=== PATIENT | male | born 1965 | race Caucasian/White ===

== ENCOUNTER 2016-04-21 12:50 | Day surgery (SDC) | payer OTHER ==
--- NOTE | 2016-04-18 14:53 | PCM.ANEPRE ---
Anesthesia Pre-Op Review Reason for Review: cardio hx Anesthesia Recommendations: See Anesthesia Orders (lap amanda orders entered) Additional Comments Discussed case with Dr. Kirkpatrick and recommended delaying case until BP controlled and documented and cardiology consult completed. He wishes to proceed. Patient has been started on lisinopril and patient reports his BP is "better". Kaya's office also results of echo from 2011 and will forward to preop. Agreed to proceed with evaluation by anesthesiologist on DOS, but warned that at risk for cancellation if BP still elevated and/or any other concerns. Chart Reviewed by: Aleksey Kim MD Apr 18, 2016 14:53
[~2016-04-21] VITALS: Ht 182.9 cm; Wt 163.3 kg
[~2016-04-21 12:50] MED LIST: IBUP200C PO; Lactated Ringer's 1,000 ML IV ONE; Levofloxacin 500 mg/100 mL D5W IV ONE; lisinopril
[2016-04-21] MEDS ORDERED: Glycopyrrolate 0.2 mg/mL 5 mL Inj ONE (12:51)
[2016-04-21] MEDS ORDERED: fentaNYL-PF 50 mCg/mL 2 mL Inj ONE (12:51)
[2016-04-21] MEDS ORDERED: Dexamethasone 4 mg/mL Inj ONE (12:51)
[2016-04-21] MEDS ORDERED: Neostigmine 1 mg/mL 5 mL Inj ONE (12:51)
[2016-04-21] MEDS ORDERED: Rocuronium 10 mg/mL 5 mL Inj ONE (12:51)
[2016-04-21] MEDS ORDERED: Propofol 10,000 mCg/mL 20 mL Inj ONE (12:51)
[2016-04-21] MEDS ORDERED: Ondansetron 2 mg/mL 2 mL Inj ONE (12:51)
[2016-04-21] MEDS ORDERED: MetoCLOpramide 5 mg/mL 2 mL Inj ONE (12:51)
[2016-04-21] MEDS ORDERED: levoFLOXacin 500 mg/100 mL D5W Premix IV ONE (13:08)
[2016-04-21] MEDS ORDERED: Lactated Ringer's 1,000 ML IV ONE ×2 (13:20→17:49)
[2016-04-21 13:34] VITALS: BP 136/75; PULSE 63; RESP 18; O2SAT 96
[2016-04-21] MEDS ORDERED: LISI10TA PO (13:34)
[2016-04-21] MEDS ORDERED: POLY17PO6 PO (14:17)
[2016-04-21] MEDS ORDERED: OXYC5TAB72 PO (14:17)
[2016-04-21] MEDS ORDERED: Lactated Ringer's 500 ML IV PRN (14:32)
[2016-04-21] MEDS ORDERED: Lactated Ringer's 1,000 ML IV SCH (14:32)
--- NOTE | 2016-04-21 14:34 | PCM.HPANE ---
Patient Data Surgeon Admitting Provider: Attending Provider:Christine Kirkpatrick MD Primary Care Physician:Laz Banerjee MD Other Provider:Lynn Mesaingham Anesthesia Reason for Visit Calculus Of Gallbladder Ht/WT & BMI Height (Feet): 6 Height (Inches): 0 Weight (Kilograms): 163.29 Body Mass Index 48.00 Allergies Uncoded Allergies: ENVIRONMENTAL, SEASONAL (Allergy, Unknown, 04/18/16) Past Anesthesia History Anesthesia History: Denies:: Anesthesia Reactions, Fam Anesthesia Reaction Diabetes History Hx Diabetes?: No MRSA MRSA: No Medications Hypertension Medication: Yes Home Meds Incl Beta Jessica: No Active Scripts Polyethylene Glycol 3350 (Miralax)17 Gm Powd.pack17 Gm PO DAILY #20 Prov:Christine Kirkpatrick MD 04/21/16 oxyCODONE 5 Mg Tablet5 Mg PO Q4H PRN For Moderate Pain #30 TABLET Prov:Christine Kirkpatrick MD 04/21/16 Reported Medications Lisinopril 10 Mg Vezqvt96 Mg PO DAILY 30 Days Ref 0 04/21/16 Ibuprofen 200 Mg [id number] Mg PO QID PRN For Pain Ref 0 04/18/16 Discontinued Reported Medications [lisinopril] No Conflict CheckUnknown Dose DAILY 04/18/16 History History of ENT Problems?: Yes HEENT History: Positive for:: Sinus Problem (hx septoplasty, chronic allergy sx) Denies:: Cataracts Glaucoma Hearing Problem Hx of Heart Problems?: Yes Cardiovascular History: Positive for:: Cardiac Surgery (alcohol septal ablation) Hypertension (not on current meds - BP elevated) Denies:: AICD Chest Pain Edema Heart Murmur Irregular Heartbeat Pacemaker Peripheral Vascular Rheumatic Fever Thrombophlebitis Valvular Heart Disease Hx of Respiratory Problem?: Yes Respiratory History: Positive for:: Asthma Denies:: COPD Emphysema Oxygen Administration Pneumonia Pulmonary Embolism Tuberculosis Use of C-PAP Machine Use of Inhalers / NEBS Hx Neurologic Problems?: No Neurological History: Denies:: CVA Headaches Multiple Sclerosis Parkinson's Disease Seizures TIA Hx of GI Problems?: Yes Gastrointestinal History: Positive for:: Gall Bladder Disease (current admission problem) Denies:: Cirrhosis Diverticulitis Gastroesphageal Reflux Gastrointestinal Bleeding Heartburn Hepatitis Hiatal Hernia Liver Disease Rectal Bleeding Hx of Problems?: No Genitourinary History: Denies:: Kidney Stones Urinary Tract Infection Male Hx: Denies:: Prostate Problems Scrotal Mass Testicular Surgery Skin History: Denies:: History Skin Disorders? Pressure Ulcers Hx Musculoskeletal Problems?: Yes Musculoskeletal History: Positive for:: Musculoskeletal Trauma (past hx of left shoulder repair) Denies:: Osteoarthritis Hx Surgeries?: Yes (bimaxillary jaw advancement, left shoulder, septoplasty) Hx Any Other Health Problems?: Yes Other History: Denies:: Cancer Thyroid Disease History Blood Transfusions: Positive for:: Accept Blood Products? Denies:: Blood Transfusions Hx Diabetes: No Stop/Bang Treated for Sleep Apnea?: No Do You Have a CPAP Machine?: No B- Body Mass Index > 35 kg/m2: Yes A- Age over 50: No N- Neck Large Circumference: Yes G- Gender Male: Yes JACKLYN Risk Assessment: High Risk, =/>3 Yes Risk Assessment Category Category 1A: Patient has history of documented sleep apnea, and HAS NOT received any narcotic, sedative or anesthesia administration during this stay. Category 1B: Patient has history of documented sleep apnea, and HAS received any narcotic , sedative or anesthesia administration during this stay Category 2: Patient has SUSPECTED Obstructive Sleep Apnea, and HAS received any narcotic , sedative or anesthesia administration during this stay. Category 3: Patient has SUSPECTED Obstructive Sleep Apnea and HAS NOT received narcotic, sedative or anesthesia administration during this stay. Category 4: Outpatient in Procedural Areas with known sleep apnea or who screen positive for High Risk via the STOP/BANG questionnaire. Exam Exam Vital Signs Vital Signs Date Time Temp Pulse Resp B/P Pulse Ox O2 Delivery O2 Flow Rate FiO2 04/21/16 13:34 36.1 63 18 136/75 96 Room Air General Appearance: Oriented X3 HEENT/AIRWAY: MP 2 Lungs: Normal Air Movement Heart: Regular Rate/Rhythm Meds/Labs/Diagnostics Admission Meds Current Medications Lactated Ringer's (Lr) 1,000 ml @ 120 mls/hr Q8H20M ONCE IV Last administered on 04/21/16 13:31; Start 04/21/16 at 05:00; Stop 04/21/16 at 13:19; Status DC Gabapentin (Neurontin) 600 mg PREOP ONCE PO Last administered on 04/21/16 13: 32; Start 04/21/16 at 06:00; Stop 04/21/16 at 06:01; Status DC Celecoxib (CeleBREX) 200 mg PREOP ONCE PO Last administered on 04/21/16t 13:31 ; Start 04/21/16 at 06:00; Stop 04/21/16 at 06:01; Status DC Plan Impression Patient chart reviewed, patient interviewed and anesthestic plan with risks, benefits, and alternatives discussed, and informed consent obtained. NPO Status: 04/20/16 2200 ASA Physical Status: ASA3 Severe Disease Anesthetic Plan: GA Bene/Risks/Altern/Consents: Yes HP Complete Prior to Induction: Yes Roger Clinton MD Apr 21, 2016 14:34
[2016-04-21] MEDS ORDERED: fentaNYL-PF 50 mCg/mL 2 mL Inj IVPUSH PRN (14:35)
[2016-04-21] MEDS ORDERED: Ondansetron 2 mg/mL 2 mL Inj IVPUSH PRN (14:35)
[2016-04-21] MEDS ORDERED: MetoCLOpramide 5 mg/mL 2 mL Inj IVPUSH PRN (14:35)
[2016-04-21] MEDS ORDERED: EPHEDrine Sulfate 50 mg/mL Inj IVPUSH PRN (14:35)
[2016-04-21] MEDS ORDERED: Dexamethasone 4 mg/mL Inj IVPUSH PRN (14:35)
[2016-04-21] MEDS ORDERED: Phenylephrine 10,000 mCg/mL Inj IVPUSH PRN (14:35)
[2016-04-21] MEDS ORDERED: Bupivacaine-MPF 0.5% 30 mL Inj INFILTRATE ONE (15:15)
--- NOTE | 2016-04-21 17:03 | DRSVH ---
PROCEDURE: X-RAY OPERATIVE CHOLANGIOGRAM ([id number]) INDICATIONS: 50 year-old male undergoing laparoscopic cholecystectomy COMPARISON: [facility], , ABDOMEN COMPLETE, 03/27/2016, 8:00. FINDINGS: Biliary ducts: The surgeon injected contrast into the biliary ducts after cannulation of the cystic duct stump. Intra-- and extrahepatic bile ducts are nonopacified. Duodenum: Non-opacified with contrast. IMPRESSION: Nondiagnostic intraoperative cholangiogram, presumably from incomplete cannulation of the cystic duct stump. Dictated by: Ismael Galindo M.D. on 04/21/2016 at 17:00 Approved by: Ismael Galindo M.D. on 04/21/2016 at 17:02
[2016-04-21 17:20] VITALS: BP 110/55; PULSE 74; RESP 15; O2SAT 93
[2016-04-21 17:26] VITALS: BP 111/59; PULSE 82; RESP 18; O2SAT 93
[2016-04-21 17:38] VITALS: BP 113/63; PULSE 68; RESP 17; O2SAT 93
[2016-04-21] MEDS: HYDROmorphone 1 mg/mL Inj IVPUSH PRN ×2 (17:45→17:50)
[2016-04-21 17:54] VITALS: BP 124/61; PULSE 79; RESP 15; O2SAT 94
[2016-04-21 19:05] VITALS: BP 135/81; PULSE 78; RESP 16; O2SAT 94
--- NOTE | 2016-04-21 19:30 | DRSVH ---
PROCEDURE: MR ABDOMEN MRCP INDICATIONS: Dilated bile duct, Cholangiogram not feasible TECHNIQUE: Coronal HASTE through the abdomen, axial 2-D FLASH in- and [id number], and breath-hold T2 FSE with fat saturation through the biliary system and pancreas. Oblique coronal and axial thin-slice HASTE, radial thick-slab HASTE centered on the extrahepatic bile ducts. Intravenous secretin: Not requested. COMPARISON: [facility], US, ABDOMEN COMPLETE, 03/27/2016, 8:00. [facility], CR, XR CHOLANGIOGRAM OPERATIVE, 04/21/2016, 17:16. FINDINGS: Image quality: Excellent. Pancreas and biliary system: Intra- and extra-hepatic biliary ducts are non dilated. Pancreas is no rmal in morphology, without adjacent soft tissue edema. Pancreatic duct is normal in caliber, withou t developmental anomalies. Gallbladder has been surgically resected. Other solid organs: Liver and spleen are normal in size. No adrenal nodules. Both kidneys are norm al in size, without hydronephrosis. Nodes and vessels: No retroperitoneal or mesenteric adenopathy by size criteria. Aorta and inferior vena cava are normal in size. Bowel and peritoneum: Unenhanced bowel loops are normal in caliber. No free fluid. Lung bases: No basal pleural effusions. Heart size is normal. Bones and soft tissues: No ventral hernias. Bone marrow is of normal overall signal. IMPRESSION: There is a normal caliber common duct, no sign of retained stone within the biliary syste m. No free fluid is seen in the gallbladder fossa or adjacent, and therefore no suspicion for bile l eak. Excellent postoperative appearance. Dictated by: Kyle Anthony M.D. on 04/21/2016 at 19:26 Approved by: Kyle Anthony M.D. on 04/21/2016 at 19:29
--- NOTE | 2016-04-21 21:13 | OP ---
[address] [address] OPERATIVE REPORT PATIENT: JOVANNY JIMENEZ : 1965 MR#: [id number] ADMIT: 04/21/2016 JOB ID: [id number] DATE OF SURGERY: 04/21/2016 PREOPERATIVE DIAGNOSIS(ES): Cholelithiasis. POSTOPERATIVE DIAGNOSIS(ES): Cholelithiasis. PROCEDURE PERFORMED: Laparoscopic cholecystectomy with attempted intraoperative cholangiogram. SURGEON: Christine Kirkpatrick MD. FULL STACK JAVA DEVELOPER: Zeyad De La Cruz PA-C INDICATIONS: The patient is a 50-year-old gentleman who was told by his primary care physician in 2009 that he could have gallstones causing his episodic right-sided abdominal pain. He does not believe he had further investigations at that time. He did occasionally have pain which he did not pay much attention to. He had a severe attack of right sided abdominal pain with nausea a couple of weeks prior to seeing me on April 03, 2016. It lasted almost a week and he went to the emergency department at [facility] after coming back home. He was diagnosed with cholelithiasis prompting referral to Surgery. Ultrasound performed at that time showed gallstones with no gallbladder wall thickening with extrahepatic bile duct measuring 11.4 mm. He had normal liver function studies and after discussing the risks, benefits, and alternatives, he is here today for laparoscopic cholecystectomy with cholangiogram. PROCEDURE DETAILS: He was placed in supine position and underwent smooth induction of general anesthesia. Abdomen was prepped and draped in the usual sterile fashion. Surgical time-out was undertaken using safety checklist, and all were in agreement. We began by making a supraumbilical incision and entered the abdomen using Optiview trocar, and obtained pneumoperitoneum. I then placed three 5 mm working ports under direct vision, one in the epigastrium and two in the right upper quadrant and upsized the supraumbilical port to a 12 mm. After that, I retracted the gallbladder cephalad to the right and took down the adhesions of the omentum to the gallbladder down sharply and then dissected the triangle of Calot anteriorly and posteriorly and isolated the cystic duct. I then clipped the cystic duct singly on the specimen side, and catheterized the cystic duct and tried to obtain a cholangiogram. Despite multiple efforts, I was unable to make the contrast and go down the cystic duct due to continued extravasation and after a few attempts, I decided to abandon my attempts for cholangiogram and clipped the cystic duct doubly on the patient's side and then divided the cystic duct. Then as I was the dissecting the gallbladder off the liver bed, I encounter the cystic artery actually on the posterior aspect of the gallbladder and divided between it clips. I then detached the gallbladder from the liver bed through the cystic plate and then placed it in an EndoCatch bag. I then irrigated and suctioned out all the fluid from the right upper quadrant and then removed the gallbladder through the supraumbilical port site. After ensuring good hemostasis, I closed the supraumbilical port site with a [id number] 0 PDS suture using an Endo Close device and then closed the skin with 4-0 Monocryl subcuticular suture. Steri-Strips and a sterile dressing were applied. Patient was recovered from anesthesia and was taken to the recovery room in stable condition.
--- NOTE | 2016-04-22 07:15 | PCM.ANEP1 ---
Post Anesthesia Phase 1 PACU Phase 1 Assessment Anesthetic Administered: GA Level of Alertness: Awake, talking Pain: No Nausea or Vomiting: No Airway Device: Oralpharangeal Airway Lungs: Normal Air Movement Roger Clinton MD Apr 22, 2016 07:15
--- NOTE | 2016-04-22 07:15 | PCM.ANEP2 ---
Post Anesthesia Evaluation ASA/CMS Post Anesthesia VS in Patient's Normal Range?: Yes Resp Stable; Airway Patent?: Yes CV Function & Hydration Stable: Yes Mental Status Recovered?: Yes Pain control Satisfactory?: Yes N/V Control Satisfactory?: Yes Roger Clinton MD Apr 22, 2016 07:15
--- NOTE | 2016-04-23 12:26 | PATH ---
SURGICAL PATHOLOGY Attending Physician:Christine Kirkpatrick MD CASE STATUS: Signed Out PATIENT NAME: JOVANNY JIMENEZ PID: [id number] : 1965 DATE COLLECTED:04/21/2016 21:54 SPECIMEN: Gallbladder CLINICAL HISTORY: 1). GALLBLADDER FINAL DIAGNOSIS: 1.GALLBLADDER: CHOLELITHIASIS WITH ASSOCIATED CHRONIC CHOLECYSTITIS AND FOCAL CHOLESTEROLOSIS. ICD10 CODE K80.66 GROSS DESCRIPTION: The specimen is received in one formalin filled container labeled with the patient's name, sublabeled "gallbladder" and consists of an intact 9.0 x 4.0 x 2.0 CM gallbladder. The serosa is smooth. The wall is 0.2-0.3 CM in thickness. The mucosa is a dark pink-avina in color. The lumen contains a light green mucoid material and 6 green avina multifaceted calculi which range in size from 0.2-1.0 CM in greatest dimension. 5 telemarketing sales representative sections are submitted in cassette. 04/21/2016 DAC MICRO DESCRIPTION: See diagnosis. ICD-9 CODES: CPT CODES: 1: 05712 Electronically Signed Out Tony Gatica MD [facility] [address], [place] [address] Technical component performed at [facility], [facility] [address], [place], [address]
== END 2016-04-21 23:59 | disposition home or self-care (01) ==
LOC: SAS 12:50
PROVIDERS: ATTEND Student in an Organized Health Care Education/Training Program
DX: K80.00 Calculus of gallbladder with acute cholecystitis without obstruction (principal); I10 Essential (primary) hypertension; E66.01 Morbid (severe) obesity due to excess calories; I42.2 Other hypertrophic cardiomyopathy; G47.33 Obstructive sleep apnea (adult) (pediatric); J45.909 Unspecified asthma, uncomplicated
CPT/HCPCS: 47563; 74181; 74300; J1100; J1170; J2405; J2710; J2765; J3010; J7120; Q9967